=== PATIENT | female | born 1955 | race African-American/Black ===

== ENCOUNTER → 2016-09-07 | Outpatient (CLI) | payer BC ==
--- NOTE | 2016-09-07 17:51 | Diagnostic Imaging Report ---
Indications: Indeterminate calcifications left breast on screening mammogram, BI-RADS category zero Technique: Compression spot imaging of the left breast performed in craniocaudal and mediolateral oblique projections. Targeted ultrasound of left breast also performed. Findings: Comparison: Screening mammogram 08/04/2016; prior outside mammogram 07/07/2015 Microcalcification cluster in question in the anterior 12:00 position of the left breast is comprised of individual coarse benign-appearing calcifications in varying only in size. Surrounding parenchymal asymmetry disperses. No discrete mass, architectural distortion, suspicious microcalcifications or other abnormalities identified. Concurrent ultrasound demonstrates no focal abnormality, cystic or solid, in region of mammographic findings. IMPRESSION: Benign-appearing parenchymal consultations left breast No evidence of malignancy BI-RADS category 2 Recommendations: Reversion to routine screening mammography
== END | disposition home or self-care (01) ==
LOC: MAMMO 13:40
DX: N63 Unspecified lump in breast (principal)